=== PATIENT | female | born 1970 | race Caucasian/White ===

== ENCOUNTER 2020-05-22 06:27 | Emergency (ER) | payer BC, OTHER ==
--- NOTE | 2020-05-22 07:58 | EDM.PDOC ---
ED HPI GENERAL MEDICAL PROBLEM - General Chief Complaint: Upper Extremity Injury/Pain Stated Complaint: WRIST Time Seen by Provider: 05/22/20 07:53 Source of Information: Reports: Patient History Limitations: Reports: No Limitations - History of Present Illness INITIAL COMMENTS - FREE TEXT/NARRATIVE: Patient slipped on ice and fell to the ground @3 hours ago. Landed on right arm and struck right cheek against the ground. No loss of consciousness. Denies headache or neck pain. Complains of right wrist pain. She admits to drinking alcohol, last intake 0200. Duration: Hour(s): (3) Location: Reports: Upper Extremity, Right Quality: Reports: Ache Severity: Moderate Right Wrist Pain Score (Numeric/FACES): 10 - Related Data Allergies Allergy/AdvReac Type Severity Reaction Status Date / Time No Known Allergies Allergy Verified 05/22/20 06:42 Home Meds: Home Meds Acetaminophen/HYDROcodone [Paradise 325-5 MG] 1 - 2 tab PO Q6H PRN #20 tab 05/22/20 [Rx] Levothyroxine Sodium 137 mcg PO DAILY 05/22/20 [History] metFORMIN [Glucophage XR] 500 mg PO BID 05/22/20 [History] Past Medical History Endocrine/Metabolic History: Reports: Hypothyroidism Social & Family History - Tobacco Use Tobacco Use Status *Q: Never Tobacco User - Caffeine Use Caffeine Use: Reports: Coffee - Recreational Drug Use Recreational Drug Use: No Review of Systems - Review of Systems Review Of Systems: Comprehensive ROS is negative, except as noted in HPI. ED EXAM, GENERAL - Physical Exam Exam: See Below Exam Limited By: No Limitations General Appearance: Alert, WD/WN, No Apparent Distress Eye Exam: Bilateral Eye: EOMI, PERRL Nose: Normal Inspection Throat/Mouth: No Airway Compromise Head: Normocephalic, Facial Swelling (right cheek), Facial Tenderness (right cheek) Neck: Non-Tender Respiratory/Chest: No Respiratory Distress, Lungs Clear, Normal Breath Sounds Cardiovascular: Regular Rate, Rhythm, No Murmur Extremities: Other (Right wrist tenderness and swelling, no deformity.) Neurological: Alert, Oriented, Normal Cognition, No Motor/Sensory Deficits Psychiatric: Normal Affect, Normal Mood Skin Exam: Warm, Dry, Intact ED TRAUMA EXTREMITY PROCEDURES - Splinting Right Upper Extremity Splint Site: right arm Pre-Procedure NV Status: Normal Post-Procedure NV Status: Normal Splint Material: Other (Orthoglass) Splint Design: Sugar Tong Applied & Form Fitted By: Provider Provider Post-Splint Application NV Check: NV Status Normal, Good Position Complications: No Course - Vital Signs Last Recorded V/S: Last Vital Signs Temp 36.5 C 05/22/20 06:40 Pulse 92 05/22/20 06:40 Resp 18 05/22/20 06:40 BP 124/77 05/22/20 06:40 Pulse Ox 100 05/22/20 06:40 - Orders/Labs/Meds Orders: Active Orders 24 hr Category Date Time Status Max Facial Sinus wo Cont [CT] Stat Exams 05/22/20 08:10 Taken Wrist Comp Min 3V Rt [CR] Stat Exams 05/22/20 06:39 Taken Meds: Medications Discontinued Medications Generic Name Dose Route Start Last Admin Trade Name Freq PRN Reason Stop Dose Admin Hydrocodone Bitart/Acetaminophen 1 tab 05/22/20 08:30 05/22/20 08:34 Paradise 325-5 Mg PO 05/22/20 08:31 1 tab ONETIME ONE Administration - Radiology Interpretation Free Text/Narrative:: Left wrist Xray: displaced radial shaft fracture, ulna styloid fracture. (ED provider interpretation) Maxillofacial CT s/ contrast: IMPRESSION: 1. No acute fracture. 2. Orbits intact bilaterally. 3. Right facial soft tissue contusion. Dictated by Bebo Zheng MD @ 05/22/2020 8:41:52 AM - Re-Assessments/Exams Free Text/Narrative Re-Assessment/Exam: 05/22/20 08:[address] Patient care discussed with Dr. Brock ([facility]). Recommends sugar tong splint, NPO after midnight, ORIF tomorrow morning at [facility] @5:15am check in. Departure - Departure Time of Disposition: 08:59 Disposition: Home, Self-Care 01 Condition: Good Clinical Impression: Fracture of radial shaft, closed Qualifiers: Encounter type: initial encounter Fracture morphology: transverse Fracture alignment: displaced Laterality: right Qualified Code(s): S52.321A - Displaced transverse fracture of shaft of right radius, initial encounter for closed fracture Facial contusion Qualifiers: Encounter type: initial encounter Qualified Code(s): S00.83XA - Contusion of other part of head, initial encounter - Discharge Information *PRESCRIPTION DRUG MONITORING PROGRAM REVIEWED*: Yes *COPY OF PRESCRIPTION DRUG MONITORING REPORT IN PATIENT SALO: Not Applicable Prescriptions: Acetaminophen/HYDROcodone [Paradise 325-5 MG] 1 - 2 tab PO Q6H PRN #20 tab PRN Reason: Pain Instructions: Cast or Splint Care, Adult, [id number], Wrist Fracture Treated With Immobilization, [id number], Facial or Scalp Contusion, [id number] Forms: ED Department Discharge Additional Instructions: Fill the prescription for Paradise and take as directed. Follow up at [facility] tomorrow morning at 5:15 am for surgery at 7:30 am. Do not eat or drink anything after midnight tonight. Sepsis Event Note (ED) - Evaluation Sepsis Screening Result: No Definite Risk - Focused Exam Vital Signs: Vital Signs Temp Pulse Resp BP Pulse Ox 05/22/20 06:40 36.5 C 92 18 124/77 100 - My Orders Last 24 Hours: My Active Orders 05/22/20 06:39 Wrist Comp Min 3V Rt [CR] Stat 05/22/20 08:10 Max Facial Sinus wo Cont [CT] Stat - Assessment/Plan Last 24 Hours: My Active Orders 05/22/20 06:39 Wrist Comp Min 3V Rt [CR] Stat 05/22/20 08:10 Max Facial Sinus wo Cont [CT] Stat
[2020-05-22] MEDS: Acetaminophen/HYDROcodone 325-5 MG Tab PO ONE (08:34)
--- NOTE | 2020-05-23 11:06 | CR ---
INDICATION: Fall, injury, pain. RIGHT WRIST: Three views of the right wrist were obtained 05/22/20 and revealed a transverse fracture through the distal shaft of the radius with posterior and medial offset of the distal radial fracture fragment. The lateral offset is the width of the shaft or slightly greater. Posterior offset is approximately 6 mm. The radial fracture fragments are overriding approximately 12 mm. The proximal end of the distal fracture fragment is angulated medially to a fairly severe degree. Associated with an ulnar styloid fracture site with slight lateral offset and angulation of the fracture fragment. No other bone or joint abnormality was identified. IMPRESSION: Distal radial and ulnar fracture sites with deformity, most severe at the radial fracture site including overriding and offset with angulation. Offset medially of the distal fracture fragment along its proximal aspect is greater than the width of the shaft. Overriding of the distal fracture fragment proximally is approximately 12 mm. MTDD
== END 2020-05-22 09:20 | disposition home or self-care (01) ==
LOC: FB.ED 06:27
DX: S52.321A Displaced transverse fracture of shaft of right radius, initial encounter for closed fracture (principal); S52.611A Displaced fracture of right ulna styloid process, initial encounter for closed fracture; S00.83XA Contusion of other part of head, initial encounter; E03.9 Hypothyroidism, unspecified; Z79.899 Other long term (current) drug therapy; W00.0XXA Fall on same level due to ice and snow, initial encounter
CPT/HCPCS: 29125; 70486; 73110; 99284; A9270; 99283

== ENCOUNTER 2023-02-21 05:59 | Day surgery (SDC) | payer OTHER ==
[2023-02-21] MEDS ORDERED: Sodium Chloride 0.9% 10 ML Syringe FLUSH PRN (06:15)
[2023-02-21] MEDS: Lactated Ringers 1,000 ML IV SCH (07:18)
[2023-02-21] MEDS: Simethicone Drops 40 MG/0.6 ML 30 ML Bottle ONE (07:31)
[2023-02-21] MEDS ORDERED: Lidocaine 2% 5 ML SDV INJECT ONE (11:49)
[2023-02-21] MEDS ORDERED: Propofol 200 MG/20 ML SDV IV ONE (11:49)
== END 2023-02-21 08:48 | disposition home or self-care (01) ==
LOC: FB.SDS 05:59
PROVIDERS: ATTEND Surgery
DX: Z12.11 Encounter for screening for malignant neoplasm of colon (principal); E03.9 Hypothyroidism, unspecified; G35 Multiple sclerosis; Z79.890 Hormone replacement therapy; Z79.84 Long term (current) use of oral hypoglycemic drugs; Z79.899 Other long term (current) drug therapy
CPT/HCPCS: 00812; A9270-GY; J2704; J7120